=== PATIENT | female | born 1995 | race Caucasian/White ===

== ENCOUNTER 2021-04-07 12:44 | Outpatient (CLI) | payer OTHER, SELFPAY ==
--- NOTE | ~2021-04-07 | US_ITS ---
EXAMINATION: US pelvic complete w TV EXAM DATE: 04/07/2021 13:39 INDICATION: Irregular periods. TECHNIQUE: Pelvic transabdominal and transvaginal sonogram was performed. There are multiple graysca le and Doppler images available for interpretation. There is no prior study for comparison. FINDINGS: Uterus measures 9.2 x 4.6 x 6.5 cm, is anteverted and morphologically normal. Endometrial stripe measures 3 mm, within normal limits. There is no free pelvic fluid. Right adnexa: The ovary measures 4.0 x 2.6 x 2.3 cm and is morphologically normal, contains the domin ant physiologic follicle. Ovarian vascular flow confirmed. Left adnexa: The ovary measures 4.0 x 2.3 x 2.6 cm and is morphologically normal. Ovarian vascular fl ow confirmed. Some dilated left gonadal veins. This can be seen with pelvic congestion syndrome. IMPRESSION: 1. Dilated left gonadal veins. 2. Normal uterus. Reviewed, dictated and finalized at location A.
== END 2021-04-07 12:45 | disposition home or self-care (01) ==
LOC: ANHIMG 12:46
PROVIDERS: PCP Nurse Practitioner Family; Visit Provider Obstetrics & Gynecology
DX: N92.6 Irregular menstruation, unspecified (principal)
CPT/HCPCS: 76830; 76856

== ENCOUNTER 2022-04-14 09:51 | Outpatient (CLI) | payer OTHER, SELFPAY ==
--- NOTE | 2022-04-14 11:00 | NEURO_ITS ---
Impression: # Complains of numbness of hands. # Evolving right Carpal Tunnel Syndrome. # No ulnar neuropathy. # Normal needle/EMG exam. Nerve Conduction Studies Anti Sensory Summary Table Stim Site NR Peak (ms) P-T Amp (?V) Site1 Site2 Delta-P (ms) Dist (cm) Cristhian (m/s) Left Median Anti Sensory (2-3nd Digit) Wrist 2.8 82.7 Wrist 2-3nd Digit 2.8 14.0 50 Wrist 2.8 62.0 Wrist 2-3nd Digit 2.8 14.0 50 Right Median Anti Sensory (2-3nd Digit) Wrist 2.8 70.1 Wrist 2-3nd Digit 2.8 14.0 50 Wrist 2.8 56.9 Wrist 2-3nd Digit 2.8 14.0 50 Left Radial Anti Sensory (Base 1st Digit) Wrist 1.9 20.5 Wrist Base 1st Digit 1.9 0.0 Right Radial Anti Sensory (Base 1st Digit) Wrist 1.9 54.1 Wrist Base 1st Digit 1.9 0.0 Left Ulnar Anti Sensory (5th Digit) Wrist 2.4 64.7 Wrist 5th Digit 2.4 14.0 58 Right Ulnar Anti Sensory (5th Digit) Wrist 2.4 37.3 Wrist 5th Digit 2.4 14.0 58 Motor Summary Table Stim Site NR Onset (ms) O-P Amp (mV) Site1 Site2 Delta-0 (ms) Dist (cm) Cristhian (m/s) Left Median Motor (Abd Poll Brev) Wrist 2.7 3.8 Elbow Wrist 4.8 28.0 58 Elbow 7.5 4.2 Right Median Motor (Abd Poll Brev) Wrist 3.4 3.4 Elbow Wrist 4.3 27.0 63 Elbow 7.7 2.5 Left Ulnar Motor (Abd Dig Minimi) Wrist 2.4 5.5 A Elbow Wrist 4.6 27.0 59 A Elbow 7.0 4.6 Right Ulnar Motor (Abd Dig Minimi) Wrist 2.3 6.2 A Elbow Wrist 5.0 29.0 58 A Elbow 7.3 5.5 F Wave Studies NR F-Lat (ms) L-R F-Lat (ms) Left Median (Mrkrs) (Abd Poll Brev) 27.03 0.17 Right Median (Mrkrs) (Abd Poll Brev) 26.86 0.17 Left Ulnar (Mrkrs) (Abd Dig Min) 26.66 1.27 Right Ulnar (Mrkrs) (Abd Dig Min) 25.39 1.27 EMG Side Muscle Nerve Root Ins Act Fibs Amp Dur Recrt Comment Right 1stDorInt Ulnar C8-T1 Nml Nml Nml Nml Nml Right Ext Indicis Radial (Post Int) C7-8 Nml Nml Nml Nml Nml Right Ext Digitorum Radial (Post Int) C7-8 Nml Nml Nml Nml Nml Right BrachioRad Radial C5-6 Nml Nml Nml Nml Nml Right PronatorTeres Median C6-7 Nml Nml Nml Nml Nml Right Abd Poll Brev Median C8-T1 Nml Nml Nml Nml Nml Left 1stDorInt Ulnar C8-T1 Nml Nml Nml Nml Nml Left Ext Indicis Radial (Post Int) C7-8 Nml Nml Nml Nml Nml Left Ext Digitorum Radial (Post Int) C7-8 Nml Nml Nml Nml Nml Left BrachioRad Radial C5-6 Nml Nml Nml Nml Nml Left PronatorTeres Median C6-7 Nml Nml Nml Nml Nml Left Abd Poll Brev Median C8-T1 Nml Nml Nml Nml Nml MTDD
== END 2022-04-14 09:52 | disposition home or self-care (01) ==
LOC: ANHNEURO 09:53
PROVIDERS: Visit Provider Nurse Practitioner Family
DX: G56.01 Carpal tunnel syndrome, right upper limb (principal)
CPT/HCPCS: 95886; 95911

== ENCOUNTER 2023-01-05 10:04 | Outpatient (CLI) | payer OTHER, SELFPAY ==
[2023-01-05 11:08] LABS: Hematocrit 37.1 % (37.0-47.0); Hemoglobin 12.2 g/dL (12.0-15.0); Mean Corpuscular HGB Conc 32.9 g/dl (32-36); Mean Corpuscular Hemoglobin 30.9 pg (26-34); Mean Corpuscular Volume 93.9 fl (80-100); Mean Platelet Volume 10.3 fl (7.4-10.4); Platelet Count Result 269 k/mm3 (150-375); Red Blood Count 3.95 M/mm3 (4.2-5.4); Red Cell Distribution Width 12.3 % (11.5-14.5); White Blood Count 5.7 K/mm3 (4.5-10.0)
== END 2023-01-05 10:05 | disposition home or self-care (01) ==
LOC: ANHSURGERY 10:08
PROVIDERS: PCP Nurse Practitioner Family; Visit Provider Obstetrics & Gynecology
DX: Z01.818 Encounter for other preprocedural examination (principal)
CPT/HCPCS: 36415; 85027; 86850; 86900; 86901

== ENCOUNTER 2023-01-12 01:13 | Day surgery (SDC) | payer OTHER, SELFPAY ==
[2023-01-02 13:58] VITALS: BMI 28.7
--- NOTE | 2023-01-02 14:00 | PC.NURSE ---
Report to the Outpatient Waiting Room, entrance under the green pavilion located off [facility], at time _0600__ on date 01/12/23_. Planned Procedure Time: _0730__. Time changes happen often and if your time is changed the preop area will call you the afternoon before. - You and your visitor will be asked to self-screen and do not enter if you have any COVID symptoms. - Only one visitor is requested with a max of two and NO children visitors are allowed at this time. - The patient visitor may be requested to leave or wait in car when not with patient due to distancing restrictions. - A mask is optional within the hospital at this time. Patients may have clear liquids (water, carbonated beverages, clear teas, apple juice) until 3 hours prior to surgery with a maximum of 20 ounces. - No food from midnight until time of surgery - Infants may have breast milk until 4 hours before surgery, formula 6 hours prior to surgery. - Children will be allowed to drink immediately following surgery. If applicable, please bring a bottle or sippy cup to assist with drinking. Juice, water, soda, and popsicles are readily available. For infants on formula, please bring formula the day of surgery. Pacifiers are allowed. Take the following medications with a SIP of water the morning of surgery: __none__ DO NOT STOP ANY OF YOUR OTHER PRESCRIPTION MEDICATIONS PRIOR TO SURGERY ?EXCEPT THE FOLLOWING Medications to discontinue per physician __supplements 3 days prior____ Date to take last dose Please no make-up, nail romanian, hairspray, perfume, deodorant, or body powder the day of surgery. No jewelry (including any body piercings) or valuables the day of surgery, leave them at home. Please take a shower or bath the night before, or the morning of, surgery with an antibacterial soap. Wear comfortable, loose fitting clothing. Children are encouraged to wear pajamas. - Jewelry must be removed prior to entering the operating room. Rings and piercings that are not removed may be cut off. - The hospital will not accept responsibility for valuables. - Please leave all valuables, including medications, at home the day of surgery. If you are going home after surgery, a licensed ups driver must drive you home. - NO public transportation without another adult if you receive anesthesia. - We recommend that an adult stay with you for 24 hours following discharge. - We also recommend that you do not drive, make important decision, drink alcoholic beverages, or take any drugs that were not prescribed by your health care provider for at least 24 hours after your discharge time. For Pediatric surgeries, we recommend two adults accompany the child home. Follow any additional instructions given to you from your surgeon. If you or anyone in your household have experienced Covid symptoms in the past week, please notify your surgeon or the nurse liaison at the phone number below for possible testing. Telephone instructions given to _patient__and asked if any additional questions and then verbalized understanding. Patient advised to call surgeon office or pre surgery nurse liaison [phone] if any additional questions.
--- NOTE | 2023-01-11 09:52 | P.PNAN_ITS ---
Anes - Initial Pre Proc Eval Procedure: Operation Date: 01/12/23 07:30 Proposed Procedures p Robotic Assisted Total Laparoscopic Hysterectomy - Alvaro Rosario MD Date/Time: 01/11/23 09:52 Surgeon: Alvaro Rosario MD Pre Op Diagnosis: Post Ablation Syndrome Patient Data Age: 27 Gender: F Height: 1.68 m Weight: 80.74 kg Allergies Allergy/AdvReac Type Severity Reaction Status Date / Time shellfish derived AdvReac Intermediate Vomiting Verified 01/12/23 06:30 Home Medications Medication Instructions Recorded Confirmed Type Daily Multivitamin 1 tablet PO DAILY 01/02/23 01/12/23 History Patient hx anesthesia problems: none Family hx anesthesia problems: none Results Review: All pre-operative results and documents have been reviewed as part of the pre- operative evaluation. FORMERLY [facility] Past Medical History Medical History ADHD Anxiety Exercise-induced asthma HSV-1 infection Hyperthyroidism Overweight (BMI 25.0-29.9) Surgical History Surgical History History of gynecologic surgery (05/13/21) hscope d&c/endometrial ablation History of tonsillectomy (~2006) History of tubal ligation (01/10/19) Family History Family History Grandparent Heart disease paternal grandfather Hypothyroidism maternal grandmother Mother Kidney disease Hypothyroidism Muscular dystrophy Fibromyalgia Father Acute myocardial infarction Social History Social History Smoking packs per day: 0.5 Smoking cigarettes per day: 10.0 Years smoked: 3 Smoking pack-years: 1.50 Smoking status: Former smoker Tobacco type: cigarettes Alcohol intake: current Alcohol use details: Maybe 2 every couple months Substance use: never Substance use type: does not use Other substance usage details: occasional Last use: 12/2017 Living arrangements: with family Occupation/Education: unemployed Gender identity (if verbalized by the patient): Female Sexual Orientation (if Verbalized by the Patient): Straight or Heterosexual Spiritual care concerns: No Anes - Eval Final PreProcedure Day of Procedure 01/11/23 09:52 Patient weight: overweight Heart: regular rate and rhythm Lungs: clear to auscultation and normal air movement Airway: Mallampati scale class II Neurological: alert and oriented Last oral intake: >/= 8 hours ASA classification: II Emergent: no Anesthetic plan: proceed Anesthesia type and monitoring: general ETT Results Review: All pre-operative results and documents have been reviewed as part of the pre- operative evaluation. Informed Consent: The patient's anesthetic plan and its attendant risks and benefits were discussed with the patient/family/POA. Questions were solicited and answers provided to the satisfaction of the patient/family/POA.
--- NOTE | 2023-01-11 15:53 | PM.IMHP ---
H&P: HPI History of Present Illness Date/Time: 01/11/23 15:53 27-year-old 4 para 3013 female presents for definitive therapy of continued heavy vaginal bleeding. She has undergone endometrial ablation in the past which did work for short pre to time though since that time her bleeding has increased in both severity amount and duration. Cycles are now lasting 5-7 days with 3-4 days heavy with clotting and also most months she bleeds at least for an additional 10 days throughout the month with light to moderate amount. Also with a fair amount of cramping and discomfort with her normal cycle and intermittently throughout the month as well. Ultrasound shows enlarged uterus but otherwise no specific abnormalities. Chief Complaint: Heavy bleeding Review of Systems Review of Systems: All systems reviewed & are unremarkable except as noted in HPI and below PMFSH Past Medical History Medical History ADHD Anxiety Exercise-induced asthma HSV-1 infection Hyperthyroidism Overweight (BMI 25.0-29.9) Surgical History Surgical History History of gynecologic surgery (05/13/21) hscope d&c/endometrial ablation History of tonsillectomy (~2006) History of tubal ligation (01/10/19) Family History Family History Grandparent Heart disease paternal grandfather Hypothyroidism maternal grandmother Mother Kidney disease Hypothyroidism Muscular dystrophy Fibromyalgia Father Acute myocardial infarction Social History Social History Smoking packs per day: 0.5 Smoking cigarettes per day: 10.0 Years smoked: 3 Smoking pack-years: 1.50 Smoking status: Former smoker Tobacco type: cigarettes Alcohol intake: current Alcohol use details: Maybe 2 every couple months Substance use: never Substance use type: does not use Other substance usage details: occasional Last use: 12/2017 Living arrangements: with family Occupation/Education: unemployed Gender identity (if verbalized by the patient): Female Sexual Orientation (if Verbalized by the Patient): Straight or Heterosexual Spiritual care concerns: No Meds Home Medications and Allergies Home Medications Medication Instructions Recorded Confirmed Type Daily Multivitamin 1 tablet PO DAILY 01/02/23 01/02/23 History Allergies Allergy/AdvReac Type Severity Reaction Status Date / Time shellfish derived AdvReac Intermediate Vomiting Verified 01/02/23 13:48 Exam Const: General: cooperative, healthy appearing and comfortable Resp: Effort & Inspection: normal respiratory effort Auscultation: clear to auscultation bilaterally Cardio: Rate: regular rate Rhythm: regular rhythm GI: Inspection: normal to inspection Auscultation: normal bowel sounds : External Female Exam: normal external appearance Speculum Exam - Vagina: normal appearance of the vagina Speculum Exam - Cervix: normal appearance of the cervix Bimanual exam- vagina & uterus: enlarged ( 10-12 week size) Bimanual Exam- Adnexa, other: normal adnexae Assessment and Plan Assessment and plan (1) Irregular bleeding: Code(s): N92.6 - Irregular menstruation, unspecified Status: Acute (2) History of endometrial ablation: Code(s): Z98.890 - Other specified postprocedural states Status: Acute Plan proceed with robotic assisted laparoscopic hysterectomy with ovarian preservation.
[2023-01-12] VITALS (11 sets, daily range): BP systolic 101–130; BP diastolic 59–88; PULSE 52–91; RESP 10–18; TEMP 36.3–37.2; O2SAT 96–100
[2023-01-12] MEDS: ACETAMINOPHEN 500 MG TABLET 1000 MG PO (06:32)
[2023-01-12] MEDS: LACTATED RINGERS 1,000 ML 30 ML IV CONT ×2 (06:42→08:55)
[2023-01-12] MEDS: KETOROLAC 15 MG/ML VIAL (*BKC) IV PUSH (06:43)
--- NOTE | 2023-01-12 07:14 | WPDHPUPDATE1 ---
History and Physical Update Update Date/Time: 01/12/23 07:14 History and Physical has been reviewed, including an updated exam of the patient. There are NO changes in the patient's condition. Risks, benefits, and alternatives have been discussed and questions answered. Patient agrees to proceed with procedure.
[2023-01-12] MEDS: ceFAZolin 2 GM/D5W 50 ML 2 GM/50 ML BAG IVPB (07:44)
--- NOTE | 2023-01-12 08:38 | P.OP_ITS ---
Procedure Note - Detailed Date of Procedure 01/12/23 Pre-op Diagnosis 1. Irregular vaginal bleeding 2. History of endometrial ablation Post-op Diagnosis Same Procedure Performed 1. Robotic assisted total laparoscopic hysterectomy with ovarian preservation Surgeon Alvaro Rosario MD Anesthesia General Findings Mildly enlarged uterus, ovaries without abnormality Description of Procedure Patient prepped draped in usual manner this procedure. Cervical instruments were placed for uterine mobility throughout the case. Abdominal trocar sites were marked and placed under direct visualization. [employer] system was attached to trocars and instruments were placed. Surgeon moved to console me and the round ligament cauterized and cut bilaterally bladder flap developed without difficulty. Utero-ovarian ligaments were cauterized and cut and the posterior leaf the broad ligament was incised as well. Uterine vessels were skeletonized cauterized and cut. Posterior colpotomy incision was made this carried circumferentially to remove the uterus from the vagina and the uterus was then delivered into the vagina. V lock suture was then used to approximate the vaginal cuff beginning at the left angle to the midline and then from the right angle to the midline with good approximation hemostasis noted. Irrigation was undertaken and the wrist was then placed over all of the surgical margins. At this point the procedure was considered terminated the gas was allowed to escape incisions approximated using 4-0 Monocryl patient was sent to recovery room in stable condition. Estimated Blood Loss 50 Drains No Packing No Pathology Yes Complications No immediate complications Condition Stable Disposition PACU [facility] Billing Surgery - Charge Forward: Surgery Billing
[2023-01-12] MEDS: ONDANSETRON INJ 4 MG/2 ML VIAL IV PUSH ×2 (09:19→14:55)
[2023-01-12] MEDS: fentaNYL CITRATE INJ (*CRX) 100 MCG/2 ML VIAL 25 MCG IV PUSH ×6 (09:19→10:03)
--- NOTE | 2023-01-12 10:24 | PC.NURSE ---
This patient, Cici Campos, was received from PACU on 01/12/23 at 1024. Patient/family oriented to unit policies and routines
[2023-01-12] MEDS: MORPHINE SULFATE (*CRX) 4 MG/ML INJ IV PUSH (10:42)
[2023-01-12] MEDS: DEXTROSE 5%/0.45% SOD CHL 1,000 ML 125 ML IV CONT (10:42)
[2023-01-12] MEDS: KETOROLAC 30 MG/ML VIAL (*BKC) IV PUSH (12:11)
[2023-01-12] MEDS: SIMETHICONE 80 MG TAB.CHEW PO (16:08)
[2023-01-12] MEDS: HYDROcodone/acetaminophen (*CRX) 5-325 MG TABLET 1 TAB PO (16:08)
[2023-01-13] MEDS: IBUPROFEN 600 MG TABLET PO ×2 (03:47→09:35)
[2023-01-13] MEDS: HYDROcodone/acetaminophen (*CRX) 5-325 MG TABLET 1 TAB PO ×2 (03:47→09:35)
[2023-01-13] MEDS: SIMETHICONE 80 MG TAB.CHEW PO ×2 (03:47→09:37)
[2023-01-13 04:30] LABS: Basophils Percent Auto 0.5 % (0.2-1.2); Eosinophils Percent Auto 0.2 % (0-4.4); Hematocrit 30.9 % (37.0-47.0); Hemoglobin 10.4 g/dL (12.0-15.0); Immature Granulocyte Absolute 0.02 K/mm3 (0.00-0.031); Immature Granulocyte Percent A 0.2 % (0-0.5); Lymphocytes Absolute Auto 2.28 K/mm3 (0.9-3.2); Lymphocytes Percent Auto 26.7 % (18.3-44.2); Mean Corpuscular HGB Conc 33.7 g/dl (32-36); Mean Corpuscular Hemoglobin 30.6 pg (26-34); Mean Corpuscular Volume 90.9 fl (80-100); Mean Platelet Volume 10.4 fl (7.4-10.4); Monocytes Absolute Auto 0.6 K/mm3 (0.1-0.6); Monocytes Percent Auto 6.6 % (2.6-8.5); Neutrophils Absolute Auto 5.6 K/mm3 (1.3-6.7); Neutrophils Percent Auto 65.8 % (45.5-73.1); Platelet Count Result 247 k/mm3 (150-375); Red Cell Distribution Width 12.4 % (11.5-14.5); White Blood Count 8.5 K/mm3 (4.5-10.0)
[2023-01-13 08:40] VITALS: BP 128/78; PULSE 67; RESP 18; TEMP 36.9; O2SAT 100
--- NOTE | 2023-01-13 09:33 | P.PNAN_ITS ---
Anes - Prog Note Post-Op Date/Time: 01/13/23 09:33 Cardiovascular status: normal Respiratory status: normal Airway patency: baseline Mental status: baseline Post-Op hydration status: normal Vital Signs: Last Vital Signs Temp 37.2 C 01/12/23 19:11 Pulse 78 01/12/23 19:11 Resp 16 01/12/23 19:11 BP 122/68 01/12/23 19:11 Pulse Ox 100 01/12/23 15:45 O2 Del Method Room Air 01/12/23 10:15 O2 Flow Rate 8 01/12/23 09:30 Pain Score (VAS): 0 I/O: Intake & Output 01/12/23 01/13/23 01/13/23 23:59 07:59 15:59 Intake Total 500 Balance 500 Laboratory Tests 01/13/23 03:43 01/13/23 03:43 WBC 8.5 RBC 3.40 L Hgb 10.4 L Hct 30.9 L MCV 90.9 MCH 30.6 MCHC 33.7 RDW 12.4 Plt Count 247 MPV 10.4 Immature Gran % (Auto) 0.2 Neut % (Auto) 65.8 Lymph % (Auto) 26.7 [place] % (Auto) 6.6 Eos % (Auto) 0.2 Baso % (Auto) 0.5 Lymph # (Auto) 2.28 [place] # (Auto) 0.6 Eos # (Auto) 0.0 Baso # (Auto) 0.0 Abs Immat Gran (auto) 0.02 Absolute Neuts (auto) 5.6 Absolute Nucleated RBC 0.0 Nucleated RBC % 0.0 Post-procedural complaints: none Patient Feedback: Patient satisfied with anesthetic care.
== END 2023-01-13 09:55 | disposition home or self-care (01) ==
LOC: ANHSURGERY 05:56 → ANHOB2 01-13 07:07
PROVIDERS: PCP Nurse Practitioner Family; Visit Provider Obstetrics & Gynecology
PROC: (CPT 58550; principal; 2023-01-12 07:30)
DX: N92.1 Excessive and frequent menstruation with irregular cycle (principal); E05.90 Thyrotoxicosis, unspecified without thyrotoxic crisis or storm; Z87.891 Personal history of nicotine dependence; Z98.890 Other specified postprocedural states
CPT/HCPCS: 58550; S2900; 36415; 85025; 85027; 86850; 86900; 86901; 88307; 99199; A9270; J0690; J1100; J1170; J1885; J2250; J2270; J2405; J2704; J2710; J3010; J7030; J7120; Q9968